=== PATIENT | female | born 1980 | race Caucasian/White ===

== ENCOUNTER 2017-05-10 10:01 | Emergency (ER) | payer SELFPAY ==
[2017-05-10] MEDS ORDERED: ACETAMINOPHEN W/COD #3 TAB 1 EA TAB PO ONE (10:33)
--- NOTE | 2017-05-10 10:37 | ED.PDOC ---
History of Present Illness - General Chief Complaint: General Stated Complaint: R calf discomfort, inabilty to stand on RLE Time Seen by Provider: 05/10/17 10:25 Source: patient, RN notes reviewed, Vital Signs reviewed Exam Limitations: no limitations - History of Present Illness Initial Comments: Patient presents to ER with c/o right calf pain. Patient reports that [place] and felt a pop and sudden onset of pain in her right calf. She can't walk due to the pain. It hurts to dorsiflex her foot. No numbness or tingling. Timing/Duration: 24 hours Severity: moderate Improving Factors: nothing Worsening Factors: movement Associated Symptoms: denies symptoms Allergies/Adverse Reactions: Allergies NO KNOWN ALLERGY Allergy (Verified 05/10/17 10:21) Home Medications: Ambulatory Orders Acetaminophen W/ Codeine [Tylenol W/ CODEINE #3] 1 ea PO Q4HR PRN #20 05/10/17 Review of Systems - Review of Systems Constitutional: States: no symptoms reported Respiratory: States: no symptoms reported Cardiology: States: no symptoms reported Musculoskeletal: States: see HPI Skin: States: no symptoms reported Neurological: States: no symptoms reported. Denies: numbness, paresthesia, tingling, weakness All other Systems: No Change from Baseline Past Medical History (General) - Patient Medical History Hx Stroke: No Hx Congestive Heart Failure: No Hx Diabetes: No Surgical History: no surgical history - Vaccination History Hx Influenza Vaccination: No Hx Pneumococcal Vaccination: No - Social History Hx Tobacco Use: No - Female History Patient is a Female of Child Bearing Age (10 -59 yrs old): Yes Patient : No Family Medical History - Family History Mother Family History: No Known Living Status: Still Living Physical Exam - Physical Exam General Appearance: Alert, No apparent distress, Well Developed, Well Groomed, Well Hydrated, Well Nourished Neck: supple Respiratory: no respiratory distress Cardiovascular/Chest: normal peripheral pulses Peripheral Pulses: dorsalis pedis,right: 2+ Extremity: normal capillary refill, calf tenderness - Right, swelling - Right cald, other - Pain with dorsiflexion and plantar flexion. Neurologic: no motor/sensory deficits, alert, normal mood/affect, oriented x 3 Skin Exam: normal color, warm/dry Comments: Vital Signs 05/10/17 10:13 Temperature 97.7 F Pulse Rate [ 82 Left Radial] Respiratory 20 Rate Blood Pressure 105/72 [Left Arm] O2 Sat by Pulse 98 Oximetry Progress - Progress Progress: 05/10/17 10:38 Discussed that most likely had a soleus tendon rupture. Needs MRI, will get with PCP Will wrap in an helen wrap and give crutches and pain medication. Departure - Departure Clinical Impression: Tendon injury ICD-10 Supporting Text: R soleus tendon injury - probable rupture Time of Disposition: 10:40 Disposition: Discharge to Home or Self Care Condition: Good Departure Forms: ED Discharge - Pt. Copy, Patient Portal Self Enrollment, Work Release Form Instructions: DI for Leg Pain Diet: resume usual diet Activity: no exercise - Until evaluated and cleared by Dr. Page Referrals: Zia Page MD [Active Staff] - 1-5 Days Prescriptions: Acetaminophen W/ Codeine [Tylenol W/ CODEINE #3] 1 ea PO Q4HR PRN #20 PRN Reason: Moderate To Severe Pain Home Medications: Ambulatory Orders Acetaminophen W/ Codeine [Tylenol W/ CODEINE #3] 1 ea PO Q4HR PRN #20 05/10/17
[2017-05-10 10:42] VITALS: TEMP 97.7
[2017-05-10 10:58] VITALS: BP 109/74; O2SAT 96
== END 2017-05-10 10:58 | disposition home or self-care (01) ==
LOC: ER 10:01
DX: S86.901A Unspecified injury of unspecified muscle(s) and tendon(s) at lower leg level, right leg, initial encounter (principal); X58.XXXA Exposure to other specified factors, initial encounter; Y93.01 Activity, walking, marching and hiking; Y92.39 Other specified sports and athletic area as the place of occurrence of the external cause

== ENCOUNTER 2017-07-19 18:20 | Emergency (ER) | payer SELFPAY ==
[2017-07-19 18:38] VITALS: BP 108/75; TEMP 98.4; O2SAT 99
[2017-07-19] MEDS ORDERED: CLINDAMYCIN HCL CAP 150 MG CAP PO ONE (19:03)
--- NOTE | 2017-07-19 19:06 | ED.PDOC ---
History of Present Illness - General Chief Complaint: ENT Problem Stated Complaint: SWOLLEN NECK AND RIGHT EAR PAIN Time Seen by Provider: 07/19/17 19:03 Source: patient Exam Limitations: no limitations - History of Present Illness Initial Comments: The patient is a 37-year-old female presenting to the emergency room secondary to atypical complaints of discomfort on the side of her mouth as well as some swelling that's alternated from the left to the right underneath her jaw line. She denies any dental pain. She did receive a steroid injection a few days ago. She has had some mild increased pressure in her right ear. No definite fevers. No sores in her mouth. No sores in her nose. No nausea vomiting or diarrhea. She does have discomfort with some mild swelling under her right jaw line. I'm uncertain if this is a swollen lymph node or if this is a mildly swollen submandibular gland. Timing/Duration: 1 week Severity: mild Improving Factors: nothing Worsening Factors: nothing Associated Symptoms: denies symptoms Allergies/Adverse Reactions: Allergies NO KNOWN ALLERGY Allergy (Verified 05/10/17 10:21) Home Medications: Ambulatory Orders Acetaminophen W/ Codeine [Tylenol W/ CODEINE #3] 1 ea PO Q4HR PRN #20 05/10/17 Clindamycin HCl 300 mg PO Q8H #21 cap 07/19/17 Review of Systems - Review of Systems Constitutional: States: malaise EENTM: States: nose congestion, mouth pain Respiratory: States: no symptoms reported Cardiology: States: no symptoms reported Gastrointestinal/Abdominal: States: no symptoms reported Genitourinary: States: no symptoms reported Musculoskeletal: States: no symptoms reported Skin: States: no symptoms reported Neurological: States: no symptoms reported Endocrine: States: no symptoms reported All other Systems: No Change from Baseline Past Medical History (General) - Patient Medical History Hx Stroke: No Hx Asthma: No Hx Cardiac Disorders: No Hx Congestive Heart Failure: No Hx Diabetes: No Surgical History: no surgical history - Vaccination History Hx Influenza Vaccination: No Hx Pneumococcal Vaccination: No - Social History Hx Tobacco Use: No - Female History Patient : No Family Medical History - Family History Mother Family History: No Known Living Status: Still Living Physical Exam - Physical Exam General Appearance: Alert, Comfortable, No apparent distress Eye Exam: bilateral normal Ears, Nose, Throat: hearing grossly normal, nasal congestion Neck: full range of motion, other - ee history of present illness Respiratory: no respiratory distress, no accessory muscle use Cardiovascular/Chest: normal peripheral pulses, no edema Peripheral Pulses: radial,right: 2+, radial,left: 2+ Rectal Exam: deferred Back Exam: normal inspection Extremity: normal range of motion, normal inspection, no pedal edema, normal capillary refill Neurologic: automation qtp tester II-XII nml as tested, alert, normal mood/affect, oriented x 3 Skin Exam: normal color Comments: Vital Signs - 24 hr 07/19/17 18:30 Temperature 98.4 F Pulse Rate [ 76 left brachial] Respiratory 20 Rate Blood Pressure 108/75 [left brachial] O2 Sat by Pulse 99 Oximetry Progress - Progress Progress: 07/19/17 19:06 the patient's 37-year-old female presenting to the emergency room with swelling under her right jaw. I'm uncertain if this is a mild submandibular gland inflammation or if this is some lymphadenopathy from a unspecified infection. The patient is going to be covered empirically with clindamycin 300 mg by mouth 3 times a day for 7 days. She needs to increase her fluid intake. Ibuprofen or Aleve can be used to help reduce symptoms as well. ER warnings were given for any significant worsening. she can follow up with her primary care doctor in a few days if she is not improving. Departure - Departure Clinical Impression: Neck swelling Disposition: Discharge to Home or Self Care Condition: Fair Departure Forms: ED Discharge - Pt. Copy, Patient Portal Self Enrollment Instructions: DI for Ear Pain-Adult Diet: regular diet Activity: increase activity as tolerated Referrals: RAJENDRA RAMON [Primary Care Provider] - 1-5 Days Prescriptions: Clindamycin HCl 300 mg PO Q8H #21 cap Home Medications: Ambulatory Orders Acetaminophen W/ Codeine [Tylenol W/ CODEINE #3] 1 ea PO Q4HR PRN #20 05/10/17 Clindamycin HCl 300 mg PO Q8H #21 cap 07/19/17 Additional Instructions: the patient's 37-year-old female presenting to the emergency room with swelling under her right jaw. I'm uncertain if this is a mild submandibular gland inflammation or if this is some lymphadenopathy from a unspecified infection. The patient is going to be covered empirically with clindamycin 300 mg by mouth 3 times a day for 7 days. She needs to increase her fluid intake. Ibuprofen or Aleve can be used to help reduce symptoms as well. ER warnings were given for any significant worsening. she can follow up with her primary care doctor in a few days if she is not improving.
== END 2017-07-19 19:12 | disposition home or self-care (01) ==
LOC: ER 18:20
DX: R22.1 Localized swelling, mass and lump, neck (principal)